=== PATIENT | male | born 1940 | race Two or more races ===

== ENCOUNTER 2019-03-16 14:48 | Outpatient (CLI) | payer OTHER | END 2019-03-16 14:55 | disposition home or self-care (01) | LOC: LAB 14:48 | DX: R97.20 Elevated prostate specific antigen [PSA] (principal) ==

== ENCOUNTER 2019-03-24 07:59 | Outpatient (CLI) | payer OTHER | END 2019-03-24 08:19 | disposition home or self-care (01) | LOC: SONOGRAMA 07:59 | DX: C61 Malignant neoplasm of prostate (principal); R97.20 Elevated prostate specific antigen [PSA] ==

== ENCOUNTER 2020-01-18 09:12 | Outpatient (CLI) | payer OTHER | END 2020-01-18 09:21 | disposition home or self-care (01) | LOC: LAB 09:12 | DX: R97.20 Elevated prostate specific antigen [PSA] (principal) ==

== ENCOUNTER 2020-02-09 07:19 | Outpatient (CLI) | payer OTHER | END 2020-02-09 07:25 | disposition home or self-care (01) | LOC: SONOGRAMA 07:19 | DX: R97.20 Elevated prostate specific antigen [PSA] (principal) ==

== ENCOUNTER 2022-04-23 07:26 | Outpatient (CLI) | payer OTHER | END 2022-04-23 07:30 | disposition home or self-care (01) | LOC: RX STUDY 07:26 | DX: R13.10 Dysphagia, unspecified (principal); H90.3 Sensorineural hearing loss, bilateral; J30.9 Allergic rhinitis, unspecified; J06.0 Acute laryngopharyngitis ==